=== PATIENT | male | born 1985 | race Caucasian/White ===

== ENCOUNTER 2023-02-27 18:15 | Emergency (ER) | payer OTHER, SELFPAY ==
[2023-02-27 18:44] VITALS: BP 130/76; PULSE 71; RESP 14; TEMP 36.7; O2SAT 97; BMI 30.7
--- NOTE | 2023-02-27 18:50 | XR_ITS ---
The [address] [address] Patient Name: MELANY MOSQUEDA MRN: [id number] date: 1985 Sex: M Assigned Patient Location: ER Current Patient Location: ER Accession/Order Number: [id number] Exam Date: 02/27/2023 19:00 Report Date: 02/27/2023 19:20 At the request of: AMARILYS MCKENZIE Procedure: XR foot LT min 3V EXAM: XR foot LT min 3V HISTORY: injury COMPARISON: None. TECHNIQUE: 3 views of the right foot were obtained. FINDINGS: There is no evidence of an acute fracture or dislocation. An os trigonum is noted. The joint spaces are intact throughout. No significant osseous abnormality is identified. No significant soft tissue swelling is seen in the foot. No abnormal calcifications are identified. IMPRESSION: No acute fracture or dislocation. No apparent degenerative changes are present. No significant osseous abnormality is identified. Electronically authenticated by: SHANE GUAJARDO Date: 02/27/2023 19:20
--- NOTE | 2023-02-27 18:50 | XR_ITS ---
The [address] [address] Patient Name: MELANY MOSQUEDA MRN: [id number] date: 1985 Sex: M Assigned Patient Location: ER Current Patient Location: ED.MAIN Accession/Order Number: [id number] Exam Date: 02/27/2023 19:00 Report Date: 02/27/2023 19:18 At the request of: AMARILYS MCKENZIE Procedure: XR ankle LT min 3V EXAM: XR ankle LT min 3V HISTORY: injury COMPARISON: None. TECHNIQUE: 3 views of the left ankle were obtained. FINDINGS: There is no evidence of an acute fracture or dislocation. No osteochondral injury is identified. The mortise is intact. The subtalar joints are intact. No abnormal soft tissue calcifications are present. Soft tissue swelling laterally is noted. IMPRESSION: No acute fracture or dislocation. Soft tissue swelling laterally is noted. Electronically authenticated by: SHANE GUAJARDO Date: 02/27/2023 19:18
--- NOTE | 2023-02-27 19:27 | ED_ITS ---
HPI - Extremity Injury (Lower) General Chief Complaint: Extremity Injury, Lower Stated Complaint: LOWER LEG PAIN Time Seen by Provider: 02/27/23 19:16 Source: patient Mode of arrival: walk-in Limitations: physical limitation History of Present Illness HPI Narrative: cc - left ankle and foot injury Patient was on a swing yesterday when the end of his left foot caught against a mat on the ground beneath the swing and the left foot bent backwards with full plantar flexion at the ankle and he felt a pop. He immediately experienced excruciating pain in the left ankle. Pain has markedly decreased since then and he has been able to bear weight. No other injuries. 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 Related Data Home Medications Medication Instructions Recorded Confirmed fluoxetine 40 mg capsule 40 mg PO DAILY 02/27/23 02/27/23 Allergies Allergy/AdvReac Type Severity Reaction Status Date / Time No Known Drug Allergies Allergy Verified 02/27/23 18:44 PFSH PFSH Social History Smoking status: Never smoker Exam Narrative Exam Narrative: Nurses notes and vital signs reviewed and patient is not hypoxic. afebrile General: Well-appearing and in no apparent distress. Skin: Warm, dry, no pallor noted. Cardiovascular: Normal peripheral perfusion. Respiratory: No accessory muscle use or respiratory distress. Musculoskeletal: no left ankle or foot swelling. Mild tenderness to the anterior left ankle and the left lateral malleolus. No heel or midfoot tenderness. Left ankle and foot/toes with normal ROM, no calf or popliteal tenderness, no lower extremity edema/swelling Neurological: A&O x4. Moves all extremities. Sensation intact. Psychiatric: Cooperative and interactive. Normal mood and affect. Constitutional Vital Signs - 24 hr 02/27/23 18:44 Temperature 98.1 F Pulse Rate [Monitor] 71 Respiratory Rate 14 Blood Pressure [Left Arm] 130/76 H Pulse Oximetry 97 Oxygen Delivery Method Room Air Course Vital Signs Vital signs: Vital Signs Temperature 98.1 F 02/27/23 18:44 Pulse Rate 71 02/27/23 18:44 Respiratory Rate 14 02/27/23 18:44 Blood Pressure 130/76 H 02/27/23 18:44 Pulse Oximetry 97 02/27/23 18:44 Oxygen Delivery Method Room Air 02/27/23 18:44 Temperature 98.1 F 02/27/23 18:44 Pulse Rate 71 02/27/23 18:44 Respiratory Rate 14 02/27/23 18:44 Blood Pressure 130/76 H 02/27/23 18:44 Pulse Oximetry 97 02/27/23 18:44 Oxygen Delivery Method Room Air 02/27/23 18:44 MDM - Extremity Injury (Lower) Imaging Data xr left ankle and foot: Radiologist's impression: Patient Name: MELANY MOSQUEDA MRN: [id number] date: 1985 Sex: M Assigned Patient Location: ER Current Patient Location: ED.MAIN Accession/Order Number: [id number] Exam Date: 02/27/2023 19:00 Report Date: 02/27/2023 19:18 At the request of: AMARILYS MCKENZIE Procedure: XR ankle LT min 3V EXAM: XR ankle LT min 3V HISTORY: injury COMPARISON: None. TECHNIQUE: 3 views of the left ankle were obtained. FINDINGS: There is no evidence of an acute fracture or dislocation. No osteochondral injury is identified. The mortise is intact. The subtalar joints are intact. No abnormal soft tissue calcifications are present. Soft tissue swelling laterally is noted. IMPRESSION: No acute fracture or dislocation. Soft tissue swelling laterally is noted. Electronically authenticated by: SHANE GUAJARDO Date: 02/27/2023 19:18 xr left foot: Radiologist's impression: Patient Name: MELANY MOSQUEDA MRN: [facility]:[id number] date: 1985 Sex: M Assigned Patient Location: ER Current Patient Location: ER Accession/Order Number: [id number] Exam Date: 02/27/2023 19:00 Report Date: 02/27/2023 19:20 At the request of: AMARILYS MCKENZIE Procedure: XR foot LT min 3V EXAM: XR foot LT min 3V HISTORY: injury COMPARISON: None. TECHNIQUE: 3 views of the right foot were obtained. FINDINGS: There is no evidence of an acute fracture or dislocation. An os trigonum is noted. The joint spaces are intact throughout. No significant osseous abnormality is identified. No significant soft tissue swelling is seen in the foot. No abnormal calcifications are identified. IMPRESSION: No acute fracture or dislocation. No apparent degenerative changes are present. No significant osseous abnormality is identified. Electronically authenticated by: SHANE GUAJARDO Date: 02/27/2023 19:20 Discharge Plan Discharge Chief Complaint: Extremity Injury, Lower Clinical Impression: Left ankle sprain, Sprain of foot, left Time of Disposition Decision: 19:34 Prescriptions / Home Meds: No Action fluoxetine 40 mg capsule 40 mg PO DAILY Instructions: Ankle Sprain (ED), Foot Sprain (ED) Stand Alone Forms: Portal Instructions Referrals: CHRIS SELLERS [Primary Care Provider] - 1 week
== END 2023-02-27 20:10 | disposition home or self-care (01) ==
PROVIDERS: Emergency Provider Emergency Medicine; PCP Family Medicine
DX: S93.402A Sprain of unspecified ligament of left ankle, initial encounter (principal); S93.602A Unspecified sprain of left foot, initial encounter; X50.1XXA Overexertion from prolonged static or awkward postures, initial encounter
CPT/HCPCS: 73610; 73630; 99283

== ENCOUNTER 2023-06-21 13:36 | Emergency (ER) | payer OTHER, SELFPAY ==
[2023-06-21 13:40] VITALS: BP 121/81; PULSE 82; RESP 18; TEMP 36.7; O2SAT 98; BMI 30.7
[2023-06-21] MEDS: LIDOCAINE HCL 1% 100 MG/10 ML MDV INJ (14:00)
[2023-06-21] MEDS: ADACEL DIPH,PERTUSS(ACELL),TET VAC/PF 0.5 ML ADULT SYRINGE IM (14:00)
[2023-06-21] MEDS: BACITRACIN 0.9 GM PACKET 1 PACKET TOPICAL (14:02)
--- NOTE | 2023-06-21 14:14 | ED_ITS ---
Documented by User: Vanita Kathleen 06/21/23 14:21 HPI - General Adult General Chief complaint: Wound/Laceration Stated complaint: LACERATION TO LEFT ANKLE Time Seen by Provider: 06/21/23 13:48 Mode of arrival: walk-in Limitations: no limitations History of Present Illness HPI narrative: 38-year-old male presents here with a chief complaint of a laceration to the left posterior ankle. Superficial 2 cm laceration is noted. Patient was working on a toilet at home and a piece of the porcelain sliced his leg. Injury occurred just prior to arrival. Patient's able to ambulate. Wound is superficial. No obvious foreign body noted. He is not up-to-date on tetanus immunization. Related Data Home Medications Medication Instructions Recorded Confirmed fluoxetine 40 mg capsule 40 mg PO DAILY 02/27/23 02/27/23 Previous Rx's Medication Instructions Recorded cephalexin 500 mg capsule 500 mg PO BID 10 days #20 caps 06/21/23 Allergies Allergy/AdvReac Type Severity Reaction Status Date / Time No Known Drug Allergies Allergy Verified 02/27/23 18:44 Review of Systems ROS Narrative All Systems are negative except as noted/marked.All systems reviewed and otherwise negative PFSH PFS Social History Smoking status: Never smoker Exam Narrative Exam Narrative: Nurses note and vital signs reviewed and patient is not hypoxic. General: The patient appears well and in no apparent distress. Patient is resting comfortably on cart. Skin: Warm, dry, no pallor noted. There is no rash noted. Head: Normocephalic, atraumatic Eye: Normal conjunctiva, no drainage, EOMI. PERRL Musculoskeletal: 2 cm superficial laceration to the left ankle, superficial flap noted. Small amount of bleeding. No foreign body. Remainder of extremities are unremarkable. Neurological: A&O x4, normal speech Psychiatric: Cooperative Constitutional Vital Signs, click to edit/add: Last Vital Signs Temp 98.0 F 06/21/23 13:40 Pulse 82 06/21/23 13:40 Resp 18 06/21/23 13:40 BP 121/81 06/21/23 13:40 Pulse Ox 98 06/21/23 13:40 O2 Del Method Room Air 06/21/23 13:40 Course Vital Signs Vital signs: Vital Signs Temperature 98.0 F 06/21/23 13:40 Pulse Rate 82 06/21/23 13:40 Respiratory Rate 18 06/21/23 13:40 Blood Pressure 121/81 06/21/23 13:40 Pulse Oximetry 98 06/21/23 13:40 Oxygen Delivery Method Room Air 06/21/23 13:40 Temperature 98.0 F 06/21/23 13:40 Pulse Rate 82 06/21/23 13:40 Respiratory Rate 18 06/21/23 13:40 Blood Pressure 121/81 06/21/23 13:40 Pulse Oximetry 98 06/21/23 13:40 Oxygen Delivery Method Room Air 06/21/23 13:40 Medical Decision Making MDM Narrative Medical decision making narrative: She presented here with a two similar laceration to the posterior aspect of the left ankle. Patient was working on a commode, toilet in his home Got caught by the porcelain sharp edge. Superficial in nature small amount of bleeding. Area was cleaned with Betasept and normal saline. Wound was anesthetized with one percent lidocaine solution locally ?2cc s. Wound was irrigated.Foreign body appreciated. Area was reapproximated with 4-0 Ethilon suture. Wound was reapproximated well. Bacitracin dressing was applied. he is educated on wound care. Suture removal in 7-10 days. pt will be given prescription for Keflex. 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 requested the night off of work this evening. Patient agrees with plan of care. He will be discharged home Differential Diagnosis Differential Diagnosis: Laceration, abrasion Medical Records Medical records reviewed: Yes I reviewed the patient's medical records Discharge Plan Discharge Chief Complaint: Wound/Laceration Clinical Impression: Laceration Patient Disposition: Home, Self-Care Time of Disposition Decision: 14:11 Condition: Good Prescriptions / Home Meds: New cephalexin 500 mg capsule 500 mg PO BID 10 Days Qty: 20 0RF No Action fluoxetine 40 mg capsule 40 mg PO DAILY Instructions: Care For Your Stitches (ED), Laceration (ED) Stand Alone Forms: Portal Instructions Referrals: CHRIS SELLERS [Primary Care Provider] - 1 week Discharge Date/Time: 06/21/23 14:19 Documented by User: Yoshi Christiansen 06/21/23 17:46 HPI - General Adult General Chief complaint: Wound/Laceration Stated complaint: LACERATION TO LEFT ANKLE Time Seen by Provider: 06/21/23 13:48 Related Data Home Medications Medication Instructions Recorded Confirmed fluoxetine 40 mg capsule 40 mg PO DAILY 02/27/23 02/27/23 Previous Rx's Medication Instructions Recorded cephalexin 500 mg capsule 500 mg PO BID 10 days #20 caps 06/21/23 Allergies Allergy/AdvReac Type Severity Reaction Status Date / Time No Known Drug Allergies Allergy Verified 02/27/23 18:44 PFSH PFS Social History Smoking status: Never smoker Exam Constitutional Vital Signs, click to edit/add: Last Vital Signs Temp 98.0 F 06/21/23 13:40 Pulse 82 06/21/23 13:40 Resp 18 06/21/23 13:40 BP 121/81 06/21/23 13:40 Pulse Ox 98 06/21/23 13:40 O2 Del Method Room Air 06/21/23 13:40 Course Vital Signs Vital signs: Vital Signs Temperature 98.0 F 06/21/23 13:40 Pulse Rate 82 06/21/23 13:40 Respiratory Rate 18 06/21/23 13:40 Blood Pressure 121/81 06/21/23 13:40 Pulse Oximetry 98 06/21/23 13:40 Oxygen Delivery Method Room Air 06/21/23 13:40 Temperature 98.0 F 06/21/23 13:40 Pulse Rate 82 06/21/23 13:40 Respiratory Rate 18 06/21/23 13:40 Blood Pressure 121/81 06/21/23 13:40 Pulse Oximetry 98 06/21/23 13:40 Oxygen Delivery Method Room Air 06/21/23 13:40 Medical Decision Making [facility] Narrative Medical decision making narrative: He presented here with a two cm laceration to the posterior aspect of the left ankle. Patient was working on a commode, toilet in his home Got caught by the porcelain sharp edge. Superficial in nature small amount of bleeding. Area was cleaned with Betasept and normal saline. Wound was anesthetized with one percent lidocaine solution locally ?2cc s. Wound was irrigated.Foreign body appreciated. Area was reapproximated with 4-0 Ethilon suture. Wound was reapproximated well. Bacitracin dressing was applied. he is educated on wound care. Suture removal in 7-10 days. pt will be given prescription for Keflex. 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 requested the night off of work this evening. Patient agrees with plan of care. He will be discharged home Discharge Plan Discharge Chief Complaint: Wound/Laceration Clinical Impression: Laceration Patient Disposition: Home, Self-Care Time of Disposition Decision: 14:11 Condition: Good Prescriptions / Home Meds: New cephalexin 500 mg capsule 500 mg PO BID 10 Days Qty: 20 0RF No Action fluoxetine 40 mg capsule 40 mg PO DAILY Instructions: Care For Your Stitches (ED), Laceration (ED) Stand Alone Forms: Portal Instructions Referrals: CHRIS SELLERS [Primary Care Provider] - 1 week Discharge Date/Time: 06/21/23 14:19
== END 2023-06-21 14:19 | disposition home or self-care (01) ==
PROVIDERS: Emergency Provider Emergency Medicine; PCP Family Medicine
DX: S91.012A Laceration without foreign body, left ankle, initial encounter (principal); Z23 Encounter for immunization; W26.9XXA Contact with unspecified sharp object(s), initial encounter; Z79.899 Other long term (current) drug therapy
CPT/HCPCS: 12001; 90471; 90715; 99284